=== PATIENT | female | born 1990 | race Hispanic/Latino ===

== ENCOUNTER 2019-08-28 05:54 | Inpatient (IN) | payer OTHER ==
[2019-08-28] VITALS (15 sets, daily range): BP systolic 111–141; BP diastolic 61–101
[~2019-08-28] VITALS: Ht 154.9 cm; Wt 78.9 kg
[2019-08-28] MEDS ORDERED: LACTATED RINGER'S 1000 ML IV STA (06:20)
[2019-08-28] MEDS ORDERED: BUTORPHANOL 2 MG/ML INJ (J0595) IV ONE (06:30)
[2019-08-28] MEDS ORDERED: PROMETHAZINE INJ 25 MG/ML VIAL (J2550) IV ONE (06:30)
--- NOTE | 2019-08-28 06:35 | HPEPDOC ---
Obstetrical History & Physical General Date of Admission August 28, 2019 at 06:20 Primary Care Physician: A History of Present Illness Patient is a 28 yo G1 @ 40+4wks gestation presents with concern for possible LOF at 0500 this AM. having painful regular ctx. denies VB. 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 BREAST: . ABDOMEN: Gravid and non-tender to touch. FETUS: Is vertex (VTX) by sterile vaginal examination (SVE), fetus is vertex (VTX) by Deny. HEART RATE: Regular rate and rhythm. LUNGS: Clear to auscultation (CTA). EXTREMITIES: No edema/erythema/tenderness grossly ruptured with thin mec CE: 4/80/0 Vital Signs/I&O Vital Signs Date Time Temp Pulse Resp B/P (MAP) Pulse Ox O2 Delivery O2 Flow Rate FiO2 08/28/19 06:12 98.9 Pertinent Laboratoy Data Blood Type: O+ RBC Antibody Screen: Negative HIV: Negative Hepatitis B: Negative Rapid Plasma Reagin: Nonreactive Rubella: Immune Varicella: Immune Chlamydia/Gonorrhea: Negative Group B Streptococcus: Negative Anatomy Ultrasound Placenta Location: Posterior Normal Anatomy: Yes Placenta Previa: No Vaginal Examination Dilation: 4 cm Effacement: 80% Station: 0 Cervical Consistency: Soft Cervical Position: Middle Presentation: Cephalic presentation Assessment Heart Rate (FHR): 135 Variability: Increased Accelerations: Positive Decelerations: None Tocometer Contractions: Yes Frequency: every 1-3 min. Assessment/Plan Assessment patient is 28 yo G1 @ 40+4wks gestation with ROM. Patient counseled on external and internal monitoring. discussed risks of section, infection, bleeding requiring antibiotics and associated risks, operative vaginal deliveries and associated risks, episiotomy. Plan Admit and orient. Trench Digger and consent. Diet: clears Group B Streptococcus (GBS) negative. Labs and intravenous (IV) per unit protocol Pitocin for augmentation of labor as needed. pelvis adequate for trial of labor. DO JANES Lanier LUAT N. DO August 28, 2019 06:35
[2019-08-28 06:40] LABS: HEMATOCRIT 40.5 % (36.0-47.0); HEMOGLOBIN 13.7 g/dl (12.0-15.5); MEAN CORPUSCULAR HEMOGLOBIN 29.5 pg (27.0-33.0); MEAN CORPUSCULAR HGB CONC 33.8 g/dl (32.0-36.5); MEAN CORPUSCULAR VOLUME 87.3 fl (80.0-96.0); PLATELET COUNT, AUTOMATED 160 10^3/uL (150-450); RED BLOOD COUNT 4.64 10^6/uL (4.00-5.40); WHITE BLOOD COUNT 10.2 10^3/uL (4.0-10.0)
[2019-08-28] MEDS ORDERED: VITA100T59 PO (07:00)
[2019-08-28] MEDS ORDERED: FERR325T3 PO (07:00)
[2019-08-28] MEDS ORDERED: PREN29TA4 PO (07:00)
[2019-08-28] MEDS: LR 1,000 ML IV SCH ×2 (07:25→14:20)
[2019-08-28] MEDS ORDERED: OXYTOCIN 30 UNITS IN 0.9% NaCl 500ML IV BAG (J2590) As Ordered ONE (07:36)
[2019-08-28] MEDS ORDERED: FENTANYL 2MCG/ML ROPIVACAINE 0.2% IN 0.9% NACL 100ML IVBAG As Ordered ONE (10:47)
--- NOTE | 2019-08-28 12:00 | IPNPDOC ---
Obstetrical Progress Note Date of Service August 28, 2019 Subjective [place] of Care Received report during board sign out from Dr. Lanier of 28yo at 40+4wks who was admitted this morning for ROM with light meconium and early labor. She received 1x dose of stadol/phenergan for pain management. Upon my initial assessment, pt reported that she still felt the effects of the pain medication, stating she was feeling groggy. She states she feels continue pressure and that contractions are getting stronger. Objective O: VSS, afebrile, normotensive FHR 130s, moderate variability, no accels, early decelerations CTX by palpation are strong; she is actively moving, so difficult to trace pattern via TOCO (regular via tracing when pt not active) VE by RN at 1130: C/C/+1 Vital Signs Date Time Temp Pulse Resp B/P (MAP) Pulse Ox O2 Delivery O2 Flow Rate FiO2 08/28/19 07:27 98.8 87 18 117/69 (85) Assessment and Plan Status: Reassuring Group B Streptococcus: Negative Anticipate: Vaginal Delivery Additional Comments A: 28yo at 40+4wks, Active labor with Category I FHT, Complete dilatation, Second Stage P: CEFM x2 allow to labor down until patient feels she is ready to push Close maternal/ monitoring Anticipate Consult OB if indicated MORENA TINAJERO CNM August 28, 2019 12:00
[2019-08-28 15:38] LABS: CORD GAS HCO3 V 14.6 MEQ/L; CORD GAS O2 SAT V 76.1 %; CORD GAS PCO2 V 39.2 mmHg; CORD GAS PH V 7.188 UNITS; CORD GAS PO2 V 40.8 mmHg; CORD GAS SBC V 14.2 MEQ/L; CORD GAS TCO2 V 15.8 MEQ/L
[2019-08-28 15:39] LABS: CORD GAS ABE A -15.2; CORD GAS HCO3 A 13.7 MEQ/L; CORD GAS O2 SAT A 87.1 %; CORD GAS PH A 7.12 UNITS; CORD GAS PO2 A 58.2 mmHg; CORD GAS SBC A 12.9 MEQ/L
[2019-08-28] MEDS ORDERED: ACETAMINOPHEN 325 MG/10.15 ML UDC PO PRN (16:30)
[2019-08-28] MEDS ORDERED: OXYTOCIN DRIP 30 UNITS in IV 1 EA IV SCH (16:30)
[2019-08-28] MEDS ORDERED: DOCUSATE SODIUM 100 MG CAP PO PRN (16:30)
[2019-08-28] MEDS ORDERED: LIDOCAINE 1% MDV 20ML VIAL INFIL ONE (16:30)
[2019-08-28] MEDS ORDERED: DIBUCAINE 1% OINTMENT 30GM TOP PRN (16:30)
--- NOTE | 2019-08-28 16:38 | DNPDOC ---
[facility] Delivery Note Delivery Note DATE OF DELIVERY: August 28, 2019 at 3:20 PM. PREDELIVERY DIAGNOSIS: 40+4 weeks gestation, labor, meconium stained amniotic fluid. POST DELIVERY DIAGNOSIS: Delivered. 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 ESTIMATED BLOOD LOSS: 300mL. FINDINGS: 8 pound 2 ounce (3680g) female infant, Score 9/9. DELIVERY SUMMARY: Sima is a 28to at 40+4wks admitted in early labor with PROM this AM, light meconium stained fluid. Pt entered into spontaneous active labor and progressed well to C/C/+1 with strong urge to push. She had a prolonged second stage, pushing for 3.5 hours. Once she was finally able to focus, she pushed effectively to deliver a viable female infant over a protected perineum. head was slightly asynclitic, delivered MIGUEL ANGEL and restituted to ROT. Left anterior shoulder delivered with ease, followed by right posterior shoulder, then remainder of infant delivered to maternal abdomen where she was bulb suctioned by the waiting RN, then stimulated with strong, lusty cry. Cord clamped x2 and cut by FOB; cord blood collected for gases (WNL) and for annita. Placenta delivered spontaneously and appeared intact, 3VC; pitocin bolus started at this time. Upon inspection of vagina, perineum and cervix, a 1st degree midline laceration noted and repaired in usual fashion; a figure of 8 stitch placed over bleeding hymenal tear - hemostasis achieved; Small right labial abrasion noted and 1x interrupted stitch with 4-0 vicryl placed. Patient tolerated repair well. Patient and family bonding well, anticipate uncomplicated PP course. MORENA TINAJERO CNM August 28, 2019 16:38
[2019-08-28] MEDS: IBUPROFEN 100 MG/5 ML SUSP UDC DYE FREE PO PRN (20:57)
[2019-08-29 06:00] VITALS: BP 107/63
[2019-08-29] MEDS: PRENATAL VITAMINS CHEWABLE TABLET PO SCH (08:22)
--- NOTE | 2019-08-29 08:40 | IPNPDOC ---
Progress Note Date of Service: August 29, 2019 Day#: 1 Progress Note SUBJECT: Sima is a 28yo G1 now P1001 s/p uncomplicated at 40+4 week gesta tion on [id number] at 1520 of a female weighing 3680g; overall doing well on PP Day #1. She has been ambulating, voiding spontaneously without issue and tolerating regular diet. Breast feeding without issue. Reports lochia is like a normal period. OBJECTIVE: VITAL SIGNS: Within normal limits, afebrile. Alert and oriented times three. Nonlabored breathing Heart rate: Regular rate Abdomen: Fundus firm at U Labia swollen, left>right, but reducing as expected. Minimal lochia. ASSESSMENT: PP Day #1, normal involution, stable and progressing well. exclusively and doing well. PLAN: 1. Routine PP care 2. Tylenol and Motrin for pain/swelling. 3. Encourage breast feeding and ambulation. 4. Ice diapers on perineum frequently; sitz baths PRN 5. Plan to discharge home on PP day #2. [facility]O Vital Signs Date Time Temp Pulse Resp B/P (MAP) Pulse Ox O2 Delivery O2 Flow Rate FiO2 08/29/19 06:00 98.8 76 18 107/63 (78) 99 Room Air I&O- Last 24 Hours up to 6 AM 08/29/19 06:00 Intake Total 2000 ml Output Total 1000 ml Balance 1000 ml Laboratory Data 24H LABS Laboratory Tests 2 08/28/19 15:30: Cord Arterial Blood pH 7.120, Cord Arterial Blood PCO2 43.0, Cord Arterial Blood PO2 58.2, Cord Arterial Blood HCO3 13.7, Cord Arterial Blood Total CO2 15.0, Cord Arterial Blood Base Excess -15.2, Cord Arterial Base Excess (Standard 12.9, Cord Arterial Bld Oxygen Saturation 87.1, Cord Venous Blood pH 7.188, Cord Venous Blood PCO2 39.2, Cord Venous Blood PO2 40.8, Cord Venous Blood HCO3 14.6, Cord Venous Blood Total CO2 15.8, Cord Venous Base Excess (Actual) -13.0, Cord Venous Base Excess (Standard) 14.2, Cord Venous Blood Oxygen Saturation 76.1 MORENA TINAJERO CNM August 29, 2019 08:40
[2019-08-29 18:00] VITALS: BP 116/57
[2019-08-29] MEDS: IBUPROFEN 100 MG/5 ML SUSP UDC DYE FREE PO PRN (21:27)
[2019-08-30 06:00] VITALS: BP 130/84
[2019-08-30] MEDS: PRENATAL VITAMINS CHEWABLE TABLET PO SCH (08:42)
--- NOTE | 2019-08-30 09:38 | IPNPDOC ---
Progress Note Date of Service: August 30, 2019 Day#: 2 Progress Note PPD 2 SUBJECT: Sima is a 28yo [id number] s/p uncomplicated on 27 August after presenting in active labor at 40w4d, doing well day # 2. She has been ambulating, voiding spontaneously without issue and tolerating regular diet. Breast feeding without issue. Gave one formula bottle overnight to assist with sleep. Reports lochia is like a normal period. No f/c/n/v/CP/SOB. OBJECTIVE: VITAL SIGNS: Within normal limits, afebrile. Alert and oriented times three. Abdomen: Fundus firm at U-2. Soft, NTTP. Extremities: no edema of BLE ASSESSMENT: Sima is a 28yo [id number] s/p uncomplicated on 27 August after presenting in active labor at 40w4d, doing well day # 2. Vitals within normal limits, afebrile, hemodynamically stable with no evidence of infection. PLAN: 1. Discharge to home today. 2. Tylenol and Motrin for pain. 3. Encourage breast feeding and ambulation. 4. Routine PP visit in 6 weeks in clinic. 5. Discussed return precautions at length. Dr. Xenia Lugo MD VS, I&O, 24H, Fishbone Vital Signs/I&O Vital Signs Date Time Temp Pulse Resp B/P (MAP) Pulse Ox O2 Delivery O2 Flow Rate FiO2 08/30/19 06:00 96.6 73 17 130/84 (99) 100 Room Air Xenia Lugo MD August 30, 2019 09:38
[2019-08-30] MEDS ORDERED: DOCU100C16 PO (09:40)
[2019-08-30] MEDS ORDERED: IBUP100S57 PO (09:40)
[2019-08-30] MEDS ORDERED: ACET325S6 PO (09:40)
--- NOTE | 2019-08-30 09:44 | DS.PDOC ---
Discharge Summary General Date of Admission August 28, 2019 at 06:20 Date of Discharge August 30, 2019 Discharge Summary PROCEDURES PERFORMED DURING STAY: spontaneous vaginal delivery ADMITTING DIAGNOSES: 1. Active labor at term DISCHARGE DIAGNOSES: 1. Active labor at term, delivered COMPLICATIONS/CHIEF COMPLAINT: LABOR. HISTORY OF PRESENT ILLNESS/HOSPITAL COURSE: Sima is a 28yo [id number] s/p uncomplicated on 27 August after presenting in active labor at 40w4d, doing well day # 2. She has had a benign course. At time of discharge, vitals were within normal limits, afebrile, hemodynamically stable with no evidence of infection. DISCHARGE MEDICATIONS: Please see below. ALLERGIES: Please see below. PHYSICAL EXAMINATION ON DISCHARGE: VITAL SIGNS: Within normal limits, afebrile. Alert and oriented times three. Abdomen: Fundus firm at U-2. Soft, NTTP. Extremities: no edema of BLE LABORATORY DATA: Please see below. DIET: regular DISPOSITION: home DISCHARGE PLAN/INSTRUCTIONS: 1. Discharge to home today. 2. Tylenol and Motrin for pain. 3. Encourage breast feeding and ambulation. 4. Routine PP visit in 6 weeks in clinic. 5. Discussed return precautions at length. DISCHARGE CONDITION: Stable TIME SPENT ON DISCHARGE: Greater than [address] Xenia Lugo MD Vital Signs/I&Os Vital Signs Date Time Temp Pulse Resp B/P (MAP) Pulse Ox O2 Delivery O2 Flow Rate FiO2 08/30/19 06:00 96.6 73 17 130/84 (99) 100 Room Air Discharge Medications Scheduled Ascorbic Acid (Vitamin C) 100 Mg Tablet, 1 TAB PO DAILY, (Reported) Ferrous Sulfate (Ferrous Sulfate) 325 Mg Tablet.dr, 325 MG PO DAILY, (Reported) Prenat 115/Iron Fum/Folic/Dss ( 19 Tablet) 1 Each Tablet, 1 TAB PO DAILY, (Reported) Scheduled PRN Acetaminophen (Acetaminophen) 325 Mg/10.15 Ml Solution, 650 MG PO Q4HP PRN for PAIN OR FEVER Docusate Sodium (Docusate Sodium) 100 Mg Capsule, 100 MG PO QHSP PRN for CONSTIPATION Ibuprofen (Children's Ibuprofen) 100 Mg/5 Ml Oral.susp, 800 MG PO Q8HP PRN for PAIN Allergies Coded Allergies: No Known Allergies (Verified Allergy, Unknown, 08/28/19) Xenia Lugo MD August 30, 2019 09:44
== END 2019-08-30 13:35 | disposition home or self-care (01) | DRG 807 ==
LOC: M LDO 05:54 → M LDI 06:20 → M OBS 18:40
PROVIDERS: ADMIT Obstetrics & Gynecology; ATTEND Registered Nurse Maternal Newborn
PROC: 10E0XZZ Delivery of Products of Conception, External Approach (ICD-10-PCS; principal; 2019-08-28)
PROC: 0HQ9XZZ Repair Perineum Skin, External Approach (ICD-10-PCS; 2019-08-28)
DX: O42.02 Full-term premature rupture of membranes, onset of labor within 24 hours of rupture (principal); Z37.0 Single live birth; Z3A.40 40 weeks gestation of pregnancy; O77.0 Labor and delivery complicated by meconium in amniotic fluid; O48.0 Post-term pregnancy; O70.0 First degree perineal laceration during delivery